=== PATIENT | male | born 1975 | race Caucasian/White ===

== ENCOUNTER 2021-09-26 10:28 | Emergency (ER) | payer OTHER ==
[2021-09-26 12:04] LABS: BUN/CREATININE RATIO 24 (0-10); HEMOGLOBIN 14.2 gm/dl (14.0-17.5); RED BLOOD COUNT 4.79 M/UL (4.20-5.50); WHITE BLOOD COUNT 10.7 K/UL (4.5-11.0)
[2021-09-26] MEDS ORDERED: CEPHALEXIN500 M1 PO (14:06)
[2021-09-26] MEDS ORDERED: DOXYCYCLINE HY100 MG PO (14:06)
[2021-09-26] MEDS ORDERED: BACTROBAN OINT22 GM EXT (14:06)
[2021-09-26] MEDS ORDERED: GLUCOPHAGE 500500 MG PO (14:07)
== END 2021-09-26 14:43 | disposition left against medical advice (07) ==
LOC: ER1 10:28
PROVIDERS: Emergency Medicine
DX: E11.65 Type 2 diabetes mellitus with hyperglycemia (principal); L03.012 Cellulitis of left finger; M86.9 Osteomyelitis, unspecified
CPT/HCPCS: 73140; 80053; 82009; 82962; 83605; 85025; 85652; 86140; 87040; 87070; 87205; 96374; 96375; 99283; J3370; J7030

== ENCOUNTER 2021-10-22 11:34 | Emergency (ER) | payer OTHER ==
[~2021-10-22 11:34] MED LIST: BACTROBAN OINT22 GM EXT; CEPHALEXIN500 M1 PO; DOXYCYCLINE HY100 MG PO; GLUCOPHAGE 500500 MG PO
[2021-10-22] MEDS ORDERED: CEPHALEXIN500 M1 PO (19:21)
[2021-10-22] MEDS ORDERED: BACTRIM DS TAB1 EACH PO (19:21)
== END 2021-10-22 19:45 | disposition home or self-care (01) ==
LOC: ER1 11:34
DX: M19.042 Primary osteoarthritis, left hand (principal)
CPT/HCPCS: 99283

== ENCOUNTER → 2021-11-26 | Outpatient (CLI) | payer OTHER ==
[~2021-11-26] MED LIST changes: +BACTRIM DS TAB1 EACH PO
== END ==
LOC: WCC 07:29
DX: S61.303A Unspecified open wound of left middle finger with damage to nail, initial encounter (principal); E11.622 Type 2 diabetes mellitus with other skin ulcer; I10 Essential (primary) hypertension; Z72.0 Tobacco use; Z91.19 Patient's noncompliance with other medical treatment and regimen

== ENCOUNTER → 2021-12-03 | Outpatient (CLI) | payer OTHER | END | disposition home or self-care (01) | LOC: WCC 08:09 | DX: S61.303A Unspecified open wound of left middle finger with damage to nail, initial encounter (principal); E11.622 Type 2 diabetes mellitus with other skin ulcer; I10 Essential (primary) hypertension; F17.200 Nicotine dependence, unspecified, uncomplicated; Z91.19 Patient's noncompliance with other medical treatment and regimen; X58.XXXA Exposure to other specified factors, initial encounter ==

== ENCOUNTER → 2021-12-03 | Outpatient (CLI) | payer OTHER ==
[~2021-12-03] VITALS: Ht 177.8 cm; Wt 93.4 kg
== END ==
LOC: OPSV 07:00
DX: E11.622 Type 2 diabetes mellitus with other skin ulcer (principal); S61.303D Unspecified open wound of left middle finger with damage to nail, subsequent encounter; L98.499 Non-pressure chronic ulcer of skin of other sites with unspecified severity
CPT/HCPCS: 96365; J0875; J7060

== ENCOUNTER → 2021-12-03 | Outpatient (CLI) | payer OTHER | LOC: EMI 12:55 | DX: E11.622 Type 2 diabetes mellitus with other skin ulcer (principal) | CPT/HCPCS: 73218 ==

== ENCOUNTER → 2021-12-03 | Outpatient (CLI) | payer OTHER | LOC: EXRD 14:13 | DX: M25.511 Pain in right shoulder (principal) | CPT/HCPCS: 73030 ==

== ENCOUNTER → 2021-12-13 | Outpatient (CLI) | payer OTHER ==
[~2021-12-13] MED LIST changes: +LISINOPRIL30 MG PO; +MIRALAX 119 GR119 GM PO; +OZEMPIC0.25 MG/0. PO
[2021-12-13 11:27] LABS: BUN/CREATININE RATIO 22 (0-10)
== END ==
LOC: OPSV2 10:00
PROVIDERS: Anesthesiology
DX: Z01.812 Encounter for preprocedural laboratory examination (principal); M86.9 Osteomyelitis, unspecified
CPT/HCPCS: 80048; 83036

== ENCOUNTER → 2021-12-19 | Day surgery (SDC) | payer OTHER ==
[~2021-12-19] VITALS: Ht 177.8 cm; Wt 90.7 kg
[~2021-12-19] MED LIST changes: +FAMOTIDINE20 MG PO; +HYDROCODON-ACE1 EAC6 PO
== END | disposition home or self-care (01) ==
LOC: OR 07:16
DX: M86.642 Other chronic osteomyelitis, left hand (principal); L03.012 Cellulitis of left finger; I10 Essential (primary) hypertension; E78.5 Hyperlipidemia, unspecified; J45.909 Unspecified asthma, uncomplicated; K21.9 Gastro-esophageal reflux disease without esophagitis; E11.9 Type 2 diabetes mellitus without complications; F41.9 Anxiety disorder, unspecified; F17.290 Nicotine dependence, other tobacco product, uncomplicated; Z79.899 Other long term (current) drug therapy
CPT/HCPCS: 82962; 87070; 87077; 87186; J0690; J1170; J2001; J2250; J2704; J3370; J7070